=== PATIENT | female | born 1960 | race Two or more races ===

== ENCOUNTER 2020-09-07 12:26 | Inpatient (IN) | payer MEDICAID ==
[~2020-09-07] VITALS: Ht 157.5 cm; Wt 71.5 kg
[2020-09-07] MEDS ORDERED: ONDANSETRON ODT 4 MG PO PRN (13:00)
[2020-09-07] MEDS ORDERED: BISACODYL 10 MG SUPP PR PRN (13:00)
[2020-09-07] MEDS ORDERED: DOCUSATE 100 MG CAPSULE PO PRN (13:00)
[2020-09-07] MEDS ORDERED: POLYETHYLENE GLYCOL 17 GM PACKET PO PRN (13:00)
[2020-09-07 16:10] VITALS: BP 138/82
[2020-09-07] MEDS ORDERED: BUPR150T73 PO (17:29)
[2020-09-07] MEDS ORDERED: TRAZ50TA66 PO (17:29)
[2020-09-07] MEDS ORDERED: DULO60CA7 PO (17:29)
[2020-09-07 19:05] VITALS: BP 139/82
[2020-09-08] MEDS ORDERED: TRAZODONE 50MG TABLET PO ONE
[2020-09-08 00:37] LABS: MICROSCOPIC AUTO
[2020-09-08 06:07] LABS: CHOL/HDL RATIO 2.7; FREE T4 (FREE THYROXINE) 0.76 ng/dL (0.76-1.46); LDL/HDL RATIO 1.5 (0.5-3.0)
[2020-09-08 07:29] VITALS: BP 130/74
[2020-09-08] MEDS: BUPROPION 75 MG TABLET PO SCH (13:50)
[2020-09-08] MEDS: DULOXETINE 30 MG CAPSULE.DR PO SCH (13:51)
[2020-09-08 17:48] VITALS: BP 137/80
[2020-09-08 18:17] VITALS: BP 137/80
[2020-09-08] MEDS: ACETAMINOPHEN 325 MG TABLET PO PRN (19:31)
[2020-09-08] MEDS: PRAZOSIN 1 MG CAPSULE PO SCH (20:10)
[2020-09-08] MEDS: TRAZODONE 50MG TABLET PO PRN (20:10)
[2020-09-09 07:33] VITALS: BP 100/67
[2020-09-09] MEDS: BUPROPION 75 MG TABLET PO SCH (08:30)
[2020-09-09] MEDS: DULOXETINE 30 MG CAPSULE.DR PO SCH (08:30)
[2020-09-09] MEDS ORDERED: LOPERAMIDE 1 MG/5 ML, 10ML UDC PO PRN (09:30)
[2020-09-09] MEDS ORDERED: LOPERAMIDE 1 MG/5 ML, 10ML UDC PO ONE (09:30)
[2020-09-09] MEDS ORDERED: LOPERAMIDE 1 MG/7.5 ML LIQUID PO ONE (10:00)
[2020-09-09] MEDS ORDERED: LOPERAMIDE 1 MG/7.5 ML LIQUID PO PRN (10:00)
[2020-09-09] MEDS: BUPROPION SR 100 MG TABLET PO SCH (12:47)
[2020-09-09 19:34] VITALS: BP 117/76
[2020-09-09] MEDS: PRAZOSIN 1 MG CAPSULE PO SCH (20:00)
[2020-09-09] MEDS: TRAZODONE 50MG TABLET PO PRN (20:49)
[2020-09-10 07:44] VITALS: BP 101/57
[2020-09-10] MEDS: BUPROPION SR 100 MG TABLET PO SCH ×2 (08:27→12:14)
[2020-09-10] MEDS: DULOXETINE 30 MG CAPSULE.DR PO SCH (08:27)
[2020-09-10] MEDS: ACETAMINOPHEN 325 MG TABLET PO PRN (11:49)
[2020-09-10 19:40] VITALS: BP 130/88
[2020-09-10] MEDS: TRAZODONE 50MG TABLET PO PRN (20:52)
[2020-09-10] MEDS: PRAZOSIN 1 MG CAPSULE PO SCH (20:52)
[2020-09-11 07:39] VITALS: BP 98/63
[2020-09-11] MEDS: DULOXETINE 30 MG CAPSULE.DR PO SCH (08:17)
[2020-09-11] MEDS: BUPROPION SR 100 MG TABLET PO SCH ×2 (08:17→11:54)
[2020-09-11 19:36] VITALS: BP 126/82
[2020-09-11] MEDS: PRAZOSIN 1 MG CAPSULE PO SCH (20:25)
[2020-09-11] MEDS: TRAZODONE 50MG TABLET PO PRN (20:25)
[2020-09-12 06:24] VITALS: BP 100/64
[2020-09-12] MEDS: BUPROPION SR 100 MG TABLET PO SCH ×2 (08:23→12:20)
[2020-09-12] MEDS: DULOXETINE 30 MG CAPSULE.DR PO SCH (08:23)
[2020-09-12] MEDS ORDERED: PRAZ1CAP2 PO (14:02)
[2020-09-12] MEDS ORDERED: TRAZ50TA66 PO (14:02)
[2020-09-12] MEDS ORDERED: BUPR-173 PO (14:02)
[2020-09-12] MEDS ORDERED: DULO30CA2 PO (14:02)
[2020-09-12] MEDS ORDERED: HYDR-826 PO (14:02)
== END 2020-09-12 17:24 | disposition home or self-care (01) | DRG 885 ==
LOC: 3E 15:48
PROVIDERS: ADMIT Psychiatry & Neurology Psychosomatic Medicine; ATTEND Psychiatry & Neurology Psychosomatic Medicine
DX: F33.2 Major depressive disorder, recurrent severe without psychotic features (principal); R45.851 Suicidal ideations; Z88.6 Allergy status to analgesic agent; Z88.0 Allergy status to penicillin; Z91.018 Allergy to other foods; F41.1 Generalized anxiety disorder; F43.0 Acute stress reaction; F51.5 Nightmare disorder; Z79.899 Other long term (current) drug therapy
CPT/HCPCS: 36415; 71045; 80061; 81001; 82140; 84439; 84443; 87086; 93005; Q0162